=== PATIENT | male | born 1955 | race Caucasian/White ===

== ENCOUNTER 2020-10-25 00:47 | Outpatient (CLI) | payer OTHER, SELFPAY ==
--- NOTE | 2020-10-25 10:30 | DI.CTLCSR_ITS ---
EXAM: CT CHEST LUNG CANCER SCREEN CLINICAL HISTORY: SCREENING FOR LUNG CA,CURRENT SMOKER,F17.210. TECHNIQUE: Imaging Protocol: Low Dose Technique CONTRAST MATERIAL: None COMPARISON: MR MRI - LUMBAR SPINE WO CONTRAST from 03/30/2017 FINDINGS: CHEST: LUNGS: There are no significant focal right lung findings nor pleural effusion.. In the opposite-lef t lung there are mild benign-appearing increased markings in the lower left upper lobe and lingular s egment. There are also pleural-based benign-appearing increased markings as well as some pleural bas ed infiltrate in the posterior basal segment of the left lower lobe. The pleural base of this infilt rate in left lower lobe is 2.7 centimetres by 0.7 centimetres. No overlying chest wall destruction n o associated pleural effusion. There are no significant focal findings in the trachea and mainstem bronchi. MEDIASTINUM: There is no obvious hilar nor mediastinal adenopathy. CARDIAC: Heart size is normal. There is no pericardial effusion.Coronary artery calcification noted in the LAD. Caliber of the thoracic aorta is within normal limits. OSSEOUS: Slight loss of height of superior endplate of T12.. OTHER: Visualized adrenals unremarkable. IMPRESSION: 1. There is pleural based infiltrate in the left lower lobe posterior basal segment. Six-month follo w-up recommended no associated pleural effusions nor obvious intrathoracic adenopathy. Opposite-righ t lung is clear. Also no right pleural effusion. 2. Coronary artery calcification. Heart size normal. 3. Slight loss of height of superior endplate of T12 vertebral body. This was evident on prior MRI s can March 2017 and therefore not acute.. Lung RADS Cat 3 - Probably Benign: Probably benign finding(s) - short term follow-up suggested; inclu de nodules with a low likelihood of becoming a clinically active cancer. RADIATION DOSE DELIVERED: 100.95mGy.cm Total DLP DATA REPOSITORY: All CT scans at this facility are submitted to the National Radiology Data Registry (NRDR) Dose Index Registry (DIR) with the [employer] ([employer]). RADIATION OPTIMIZATION: All CT scans at this facility use at least one of these dose optimization te chniques: automated exposure control; mA and/or kV adjustment per patient size (includes targeted exa ms where dose is matched to clinical indication); or iterative reconstruction.
== END 2020-10-25 01:07 ==
PROVIDERS: PCP Nurse Practitioner; Visit Provider Physician Assistant
DX: F17.210 Nicotine dependence, cigarettes, uncomplicated (principal); R91.8 Other nonspecific abnormal finding of lung field; I25.10 Atherosclerotic heart disease of native coronary artery without angina pectoris
CPT/HCPCS: G0297